=== PATIENT | female | born 1975 | race Caucasian/White ===

== ENCOUNTER 2017-07-20 12:38 | Inpatient (IN) ==
[2017-07-20 13:29] LABS: Basophils # 0.1 K/mcL (0.0-0.2); Basophils % 0.8 %; Eosinophils # 0.1 K/mcL (0.0-0.6); Eosinophils % 0.9 %; Hematocrit 38.6 % (35.3-44.9); Hemoglobin 12.9 g/dL (11.5-15.4); Immature Granulocytes % 0.5 % (0-4); Lymphocytes # 2.2 K/mcL (0.6-4.6); Lymphocytes % 32.9 %; Mean Corpuscular HGB Conc 33.4 g/dL (31.6-35.5); Mean Corpuscular Hemoglobin 29.6 pg (28.0-33.3); Mean Corpuscular Volume 88.5 fL (83.0-100.0); Mean Platelet Volume 10.4 fL (9.4-12.4); Monocytes # 0.5 K/mcL (0.0-1.3); Monocytes % 7.2 %; Neutrophils # 3.8 K/mcL (1.6-8.9); Platelet Count 284 K/mcL (140-400); Red Blood Count 4.36 M/mcL (3.82-4.97); Red Cell Distribution Width 12.9 % (11.5-14.5); Segmented Neutrophils % 57.7 %
[2017-07-20 13:49] LABS: Bilirubin,Urine Negative (Negative); Blood,Urine Negative (Negative); Clarity,Urine Clear (Clear); Color,Urine Yellow (Yellow); Glucose,Urine (UA) Normal (Normal); Ketones,Urine Negative (Negative); Leukocyte Esterase,Urine Negative (Negative); Nitrite,Urine Negative (Negative); Protein,Urine Negative (Neg-Trace); Specific Gravity,Urine 1.007 (1.010-1.025); Urobilinogen,Urine Normal (Normal)
[2017-07-20 13:51] LABS: Acetaminophen < 1.0 mcg/mL (10-30); BUN/Creatinine Ratio 10 (6-26); Blood Urea Nitrogen 9 mg/dL (6-20); Calcium 8.8 mg/dL (8.6-10.3); Carbon Dioxide 24 mEq/L (23-29); Chloride 103 mEq/L (98-107); Ethanol < 10 mg/dL (0-10); Glucose 83 mg/dL (70-105); Osmolality,Calculated 276 (280-300); Potassium 3.5 mEq/L (3.5-5.1); Salicylate < 5.0 mg/dL (15.0-30.0); Sodium 134 mEq/L (136-145); eGFR For African Americans > 60 (> 60); eGFR For Non-African Americans > 60 (> 60)
[2017-07-20 13:52] LABS: Albumin 3.7 g/dL (3.5-5.7); Albumin/Globulin Ratio 1.3 (1.1-2.2); Bilirubin,Direct 0.1 mg/dL (0.0-0.2); Bilirubin,Indirect 0.2 mg/dL (0.0-1.2); Bilirubin,Total 0.3 mg/dL (0.3-1.0); Globulin 2.9 g/dL (2.4-3.5); Total Protein 6.6 g/dL (6.4-8.9)
--- NOTE | 2017-07-20 13:55 | Emergency Department Note ---
Disposition Clinical Impression: Suicidal ideation, Cervical lymphadenopathy Depression Qualifiers: Depression Type: major depressive disorder Major depression recurrence: recurrent Active/Remission status: currently active Major depression episode severity: severe Psychotic features: with psychotic features Qualified Code(s): F33.3 - Major depressive disorder, recurrent, severe with psychotic symptoms Disposition: Admitted As Inpatient Condition: Fair Time of Disposition: 17:19 General Adult HPI - General Chief complaint: ED Psychiatric Symptoms Stated complaint: multiple complaints Time Seen by Provider: 07/20/17 12:46 Source: patient Limitations: no limitations Nursing Notes Reviewed: Yes Vital Signs Reviewed: Yes - History of Present Illness HPI Narrative: Mrs. Fisher is a 41-year-old woman with a history of anxiety and depression who presents to the ED with complaint of a mass developing in her anterior neck as well as a rash on her lower legs. The patient says that yesterday when she woke up she noticed that there is a mass in her anterior neck which was larger than general and was making a challenging to swallow and breathe easily. Masses not painful, however she has been touching it a lot because of nerves related to it and she says that that has caused some soreness. This has never happened to her before and she is being ill. She does not have any history of thyroid problems. In addition to this, she says that she has had a rash over her lower extremities that began earlier today. It is very itchy and it is red and blotchy. She does not remember using any new products on her skin, and she has not eaten anything strange. She has not taken anything for this. The patient does say that she has had a history of a headache with eye pain bilaterally for several months which has not been fully diagnosed. Additionally , this patient says that she has been severely depressed. She does not necessarily have suicidal ideations, however she expresses sentiments that she may be better off if she would never wake up again. She is expressed ideas such as driving off the road or developing cancer. She denies any plan to harm herself or others, however she does wish that she would not wake. Additionally she apparently mentioned to the nurse that she was having some auditory hallucinations and noticed that she could hear her name being called. She has not experienced this in the past. She denies any drug use or alcohol use. Pain Scale: 0 - Related Data Home Medications Medication Instructions Recorded Confirmed Acyclovir [Zovirax] 800 mg PO DAILY PRN 07/20/17 07/20/17 Albuterol Sulfate [Albuterol 2 puff IH Q4H PRN 07/20/17 07/20/17 Inhaler] FLUoxetine HCl [Prozac] 80 mg PO DAILY 07/20/17 07/20/17 Montelukast [Singulair] 10 mg PO DAILY 07/20/17 07/20/17 Omeprazole [PriLOSEC] 40 mg PO DAILY 07/20/17 07/20/17 hydrOXYzine HCl [Hydroxyzine HCl] 25 mg PO TID PRN 07/20/17 07/20/17 Allergies Allergy/AdvReac Type Severity Reaction Status Date / Time Penicillins Allergy See Verified 07/20/17 17:18 Comments Constitutional: Denies: fever, chills, weakness, night sweats Eyes: Reports: eye pain. Denies: vision change ENT ED: Reports: congestion, dysphagia Cardiovascular: Denies: chest pain, palpitations, dyspnea on exertion Respiratory: Reports: cough. Denies: dyspnea, wheezes Gastrointestinal: Denies: abdominal pain, nausea, vomiting Genitourinary: Denies: urgency, dysuria Musculoskeletal: Denies: back pain, neck pain Integumentary: Reports: rash (Lower extremity) Neurological: Reports: headache, vertigo (Intermittently). Denies: numbness, paresthesias Psychiatric: Reports: anxiety, depression, suicidal thoughts, auditory hallucinations Past Medical History - Past Medical History Medical history: Reports: no medical history Psychiatric history: Reports: anxiety, depression - Social History Smoking Status: Never smoker Smokeless Tobacco Status: No Alcohol use: Reports: none Drug use: Reports: none Physical Exam Gen.: Vitals noted. No acute distress. AAOx3 HEENT: PERRL/EOMI, oropharynx clear, Normocephalic, atraumatic Neck: Supple. Mass noted bilaterally on anterior neck consistent with lymphadenopathy Cardiac: RRR, no murmur, +S1/S2 Pulmonary: CTA bilaterally, no wheezes, rales or rhonchi, equal chest expansion Abdomen: soft, nontender, BS noted, no guarding Back: Nontender throughout. Extremities: no BLE edema, nontender calf, no cyanosis or clubbing Skin: urticarial rash noted on lower extremities b/l Neuro: A&Ox3, moves all extremities, no focal deficits Psych: Depressed mood, teary-eyed upon questioning, admits to suicidal ideation , auditory hallucinations - General Limitations: no limitations General appearance: alert, in no apparent distress Course Vital Signs Temperature 97.7 F 07/20/17 12:39 Pulse Rate 70 07/20/17 12:39 Respiratory Rate 16 07/20/17 12:39 Blood Pressure 137/91 07/20/17 12:39 O2 Sat by Pulse Oximetry 98 07/20/17 12:39 Temperature 97.7 F 07/20/17 12:39 Pulse Rate 70 07/20/17 12:39 Respiratory Rate 16 07/20/17 12:39 Blood Pressure 137/91 07/20/17 12:39 O2 Sat by Pulse Oximetry 98 07/20/17 12:39 Oxygen Delivery Oxygen Delivery Room Air Medical Decision Making - MDM Narrative Medical decision making narrative: I reviewed this patient's labs and imaging. The patient does primarily concerned about this mass that she feels in her anterior neck along with a rash in the lower extremities. On exam, she does have a palpable masslike process in the anterior neck just below the mandible. This is likely consistent with cervical lymphadenopathy, however the patient is highly concerned about this and the fact that it could affect her thyroid so I did order a CT of the soft tissue of the neck which was negative, but did demonstrate nonspecific lucent lesions upon multiple vertebra that was recommended for bone scan follow-up. Labs did not demonstrate any abnormality consistent with a thyroid problem. Additionally she will appear to have any infectious process. I do believe that the rash in the lower extremities is urticarial, and not infectious in nature. Given that the patient does have a complicated Psychiatric history and has given indication that she has suicidal ideations or abnormal preoccupation with , so I had titrated evaluate the patient who is going to accept her as an inpatient. Because the patient has a significant risk to herself, I did opt to [place] slip this patient. The patient has been medically cleared and will be transferred to . - Medical Records Medical records reviewed: Yes I reviewed the patient's medical records. - Lab Data Lab results reviewed: Yes I reviewed the patient's lab results. Result diagrams: 07/20/17 13:19 07/20/17 13:19 Lab Results 07/20/17 07/20/17 07/20/17 Range/Units 13:19 13:19 13:19 WBC 6.5 (4.3-11.1) K/mcL RBC 4.36 (3.82-4.97) M/mcL Hgb 12.9 (11.5-15.4) g/dL Hct 38.6 (35.3-44.9) % MCV 88.5 (83.0-100.0) fL MCH 29.6 (28.0-33.3) pg MCHC 33.4 (31.6-35.5) g/dL RDW 12.9 (11.5-14.5) % Plt Count 284 (140-400) K/mcL MPV 10.4 (9.4-12.4) fL Immature Gran % 0.5 (0-4) % Seg Neutrophils % 57.7 % Lymphocytes % 32.9 % Monocytes % 7.2 % Eosinophils % 0.9 % Basophils % 0.8 % Neutrophils # 3.8 (1.6-8.9) K/mcL Lymphocytes # 2.2 (0.6-4.6) K/mcL Monocytes # 0.5 (0.0-1.3) K/mcL Eosinophils # 0.1 (0.0-0.6) K/mcL Basophils # 0.1 (0.0-0.2) K/mcL Sodium 134 L (136-145) mEq/L Potassium 3.5 (3.5-5.1) mEq/L Chloride 103 (98-107) mEq/L Carbon Dioxide 24 (23-29) mEq/L BUN 9 (6-20) mg/dL Creatinine 0.91 (0.60-1.20) mg/dL Est GFR ( Amer) > 60 (> 60) Est GFR (Non-Af Amer) > 60 (> 60) BUN/Creatinine Ratio 10 (6-26) Glucose 83 (70-105) mg/dL Calculated Osmolality 276 L (280-300) Calcium 8.8 (8.6-10.3) mg/dL Total Bilirubin 0.3 (0.3-1.0) mg/dL Direct Bilirubin 0.1 (0.0-0.2) mg/dL Indirect Bilirubin 0.2 (0.0-1.2) mg/dL AST 11 L (13-39) Units/L ALT 7 (7-52) Units/L Alkaline Phosphatase 96 (34-104) Units/L Serum Total Protein 6.6 (6.4-8.9) g/dL Albumin 3.7 (3.5-5.7) g/dL Globulin 2.9 (2.4-3.5) g/dL Albumin/Globulin Ratio 1.3 (1.1-2.2) TSH 2.246 (0.340-5.600) mcIU/mL Urine Color (Yellow) Urine Clarity (Clear) Urine pH (5.0-8.0) pH Units Ur Specific [place] (1.010-1.025) Urine Protein (Neg-Trace) mg/dL Urine Glucose (UA) (Normal) mg/dL Urine Ketones (Negative) mg/dL Urine Blood (Negative) Urine Nitrite (Negative) Urine Bilirubin (Negative) Urine Urobilinogen (Normal) mg/dL Ur Leukocyte Esterase (Negative) Urine Test (Negative) Salicylates < 5.0 L (15.0-30.0) mg/dL Urine Opiates Screen (Abkvgz=057) ng/mL Acetaminophen < 1.0 L (10-30) mcg/mL Ur Barbiturates Screen (Fhcmrl=270) ng/mL Ur Phencyclidine Scrn (Cutoff=25) ng/mL Ur Amphetamines Screen (Xbtdjm=8546) ng/mL U Benzodiazepines Scrn (Ugmvni=724) ng/mL Urine Cocaine Screen (Cutoff= 300) ng/mL U Marijuana (THC) Screen (Cutoff = 50) ng/mL Ethyl Alcohol < 10 (0-10) mg/dL 07/20/17 07/20/17 07/20/17 Range/Units 13:37 13:37 13:37 WBC (4.3-11.1) K/mcL RBC (3.82-4.97) M/mcL Hgb (11.5-15.4) g/dL Hct (35.3-44.9) % MCV (83.0-100.0) fL MCH (28.0-33.3) pg MCHC (31.6-35.5) g/dL RDW (11.5-14.5) % Plt Count (140-400) K/mcL MPV (9.4-12.4) fL Immature Gran % (0-4) % Seg Neutrophils % % Lymphocytes % % Monocytes % % Eosinophils % % Basophils % % Neutrophils # (1.6-8.9) K/mcL Lymphocytes # (0.6-4.6) K/mcL Monocytes # (0.0-1.3) K/mcL Eosinophils # (0.0-0.6) K/mcL Basophils # (0.0-0.2) K/mcL Sodium (136-145) mEq/L Potassium (3.5-5.1) mEq/L Chloride (98-107) mEq/L Carbon Dioxide (23-29) mEq/L BUN (6-20) mg/dL Creatinine (0.60-1.20) mg/dL Est GFR ( Amer) (> 60) Est GFR (Non-Af Amer) (> 60) BUN/Creatinine Ratio (6-26) Glucose (70-105) mg/dL Calculated Osmolality (280-300) Calcium (8.6-10.3) mg/dL Total Bilirubin (0.3-1.0) mg/dL Direct Bilirubin (0.0-0.2) mg/dL Indirect Bilirubin (0.0-1.2) mg/dL AST (13-39) Units/L ALT (7-52) Units/L Alkaline Phosphatase (34-104) Units/L Serum Total Protein (6.4-8.9) g/dL Albumin (3.5-5.7) g/dL Globulin (2.4-3.5) g/dL Albumin/Globulin Ratio (1.1-2.2) TSH (0.340-5.600) mcIU/mL Urine Color Yellow (Yellow) Urine Clarity Clear (Clear) Urine pH 6.0 (5.0-8.0) pH Units Ur Specific [place] 1.007 L (1.010-1.025) Urine Protein Negative (Neg-Trace) mg/dL Urine Glucose (UA) Normal (Normal) mg/dL Urine Ketones Negative (Negative) mg/dL Urine Blood Negative (Negative) Urine Nitrite Negative (Negative) Urine Bilirubin Negative (Negative) Urine Urobilinogen Normal (Normal) mg/dL Ur Leukocyte Esterase Negative (Negative) Urine Test Negative (Negative) Salicylates (15.0-30.0) mg/dL Urine Opiates Screen Negative (Hzvivr=128) ng/mL Acetaminophen (10-30) mcg/mL Ur Barbiturates Screen Negative (Qxibiz=578) ng/mL Ur Phencyclidine Scrn Negative (Cutoff=25) ng/mL Ur Amphetamines Screen Negative (Bpvhkz=1187) ng/mL U Benzodiazepines Scrn Negative (Jtpgiu=630) ng/mL Urine Cocaine Screen Negative (Cutoff= 300) ng/mL U Marijuana (THC) Screen Negative (Cutoff = 50) ng/mL Ethyl Alcohol (0-10) mg/dL - Radiology Data Radiology results reviewed: Yes I reviewed the patient's radiology results. Attestation Statement - Attestation Attestation: Patient was seen with resident physician. I reviewed the history, physical, assessment and plan, and agree with the findings. I also personally evaluated this patient and had [id number] time with this patient. 41-year-old female presents to the emergency department with chief complaint of neck mass and some depression. Patient also states that she developed a rash earlier today. The legs bilaterally lower extremities. She denies fevers chills chest pain or shortness of breath. She gave several different psych histories 2 nurses in providers. It is unclear what the level of her depression is based on these discordant reports. On exam vital signs are stable. ENT is unremarkable except for some lymphadenopathy in the anterior neck. Heart and lungs normal. Abdomen is soft and nontender. Extremities are unremarkable. Neurologically intact. Psych patient appears somewhat depressed and anxious. ED course we will get a CT scan of her neck because the patient's anxious about a thyroid problem. Basic lab testing was largely unremarkable. Once her workup is complete we will have one A, evaluate the patient for the psychiatric issues. CT of the neck just revealed anterior lymphadenopathy there was no mass noted. Labs are unremarkable. When he did come and evaluate the patient had a lot of concerns about the patient's ability to care for self once home with some psychiatric issues. She was placed on an involuntary psychiatric hold. She will be admitted to one A for further evaluation treatment. I agree with the resident physician assessment and plan.
[2017-07-20 13:59] LABS: Thyroid Stimulating Hormone 2.246 mcIU/mL (0.340-5.600)
[2017-07-20 13:59] LABS: Amphetamine Screen,Urine Negative ng/mL (Cutoff=1000); Barbiturate Screen,Urine Negative ng/mL (Cutoff=200); Benzodiazepines Screen,Urine Negative ng/mL (Cutoff=200); Cannabinoid Screen,Urine Negative ng/mL (Cutoff = 50); Cocaine Screen,Urine Negative ng/mL (Cutoff= 300); Opiate Screen,Urine Negative ng/mL (Cutoff=300); Phencyclidine Screen,Urine Negative ng/mL (Cutoff=25)
[2017-07-20] MEDS ORDERED: Mag Hydrox/Al Hydrox/Simeth 30 ML UDC PO PRN (18:40)
[2017-07-20] MEDS ORDERED: *HR* LORazepam 2 MG/ML VIAL IM PRN (18:40)
[2017-07-20] MEDS ORDERED: MOM Conc 10 ML UD.LIQ PO PRN (18:40)
[2017-07-20] MEDS ORDERED: Haloperidol Lactate 5 MG/ML VIAL IM PRN (18:40)
[2017-07-20] MEDS ORDERED: traZODone 50 MG TABLET PO PRN (18:40)
[2017-07-20] MEDS ORDERED: *HR* LORazepam 1 MG TABLET PO PRN (18:40)
[2017-07-20] MEDS: hydrOXYzine pamoate 25 MG CAPSULE PO PRN (21:27)
[2017-07-21] MEDS: FLUoxetine 20 MG CAPSULE PO SCH (09:05)
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
[2017-07-21] MEDS: hydrOXYzine pamoate 25 MG CAPSULE PO PRN (20:55)
[2017-07-22] MEDS: FLUoxetine 20 MG CAPSULE PO SCH (09:38)
--- NOTE | 2017-07-22 16:10 | Psychiatry Progress Note ---
Date of Encounter: 07/22/17 Time of Encounter: 15:50 Subjective Interval history: Patient told me that she was adjusting to the unit and trying to get involved. She told me that she sat in on a group today and it felt nice to hear other people talk. She did not feel so all alone. She discussed extensively her trauma history and the work that she did with her therapist in [place]. She realizes that she probably benefited from some of it, but has not continued to keep up on it. She talked about her PTSD; her memory and recall flashbacks of trauma, the fact that she still has nightmares periodically and her anxiety and hypervigilance. She notices this in many situations now that she pleases a result of things that happened to her in the past. We talked about potential medication changes in regards to her SSRI. She had Zoloft 15 years ago and was stopped on it but she is not sure why she is currently at Prozac 80 mg PO Q day. It might help some with depression, but what she feels actually drives her depression is her anxiety. She talks about having been on other medications where she "felt drugged in the past". And she does not want to do that. She states that she slept last night. We talked quite a bit about her anxiety and the use of Vistaril to help her sleep but potentially using it PRN for her anxiety and agitation. Thought being, if she got a better quality sleep and was less anxious, she should physically feel less drained and her depression would not feel so extreme. She thought this was a good idea and is going to give it a try. She denies any active suicidal ideation. She denies any auditory or visual hallucinations. She still does not feel safe leaving the unit. Objective: Exam Patient orientation: Yes Person, Yes Time, Yes Place Level of alertness: Alert Patient appearance: Appropriate Behavior: anxious Psychomotor activity: Normal Eye contact: Maintains Eye Contact Mood description: Anxious Affect description: congruent with mood Speech pattern: Normal rate, Normal rhythm, Normal tone Speech volume: Normal Thought process: Intact, Linear, Goal Oriented Thought content: Yes Suicidal ideation (passive) Judgment: Fair Insight: Partial Results - Vital Signs Vital Signs: Temp Pulse Resp BP Pulse Ox 98.2 F 69 16 118/77 98 07/21/17 21:00 07/21/17 21:00 07/21/17 21:00 07/21/17 21:00 07/20/17 12:39 Assessment and Plan (1) Depression Current visit: Yes Status: Acute Plan: Continue hospitalization, Close observation, Suicide Precautions per unit protocol, Encourage participation in unit milieu, Group Therapy, Monitor sleep Risks, benefits, side effects, alternatives discussed w/pt: Yes (Continue Prozac 80 mg po q AM) Patient agreeable to treatment: Yes (Strongly encouraged her to start doing "talk" therapy.) Qualifiers: Depression Type: major depressive disorder Major depression recurrence: recurrent Active/Remission status: currently active Major depression episode severity: severe Psychotic features: without psychotic features Qualified Code(s): F33.2 - Major depressive disorder, recurrent severe without psychotic features (2) Post traumatic stress disorder (PTSD) Current visit: Yes Status: Acute Plan: Continue hospitalization, Close observation, Suicide Precautions per unit protocol, Encourage participation in unit milieu, Group Therapy, Monitor sleep Risks, benefits, side effects, alternatives discussed w/pt: Yes Patient agreeable to treatment: Yes (Vistaril for sleep and anxiety) Consult Discharge Plan - Plan Referrals: Jerry Riley [Other] - 07/31/17 3:45 pm (The above appointment is with Dr. Riley for medication management services.) [facility] [Outside] - 08/18/17 10:00 am (The above appointment is with Mikayla Montalvo for mental health counseling services. Please arrive 10 minutes early to complete the check-in process. Please bring your insurance card (or [employer] award letter) and photo ID. If you are unable to keep this appointment, 24 hour business notice of cancellation is expected. If you miss your new patient appointment without providing appropriate notice, you cannot be re-scheduled. The above appointment(s) reflects first availability. You may contact the office regularly to check for cancellations that may allow you to be seen sooner. The [facility] is the 1st building behind [facility] in [place], [place]. Please do not use GPS or mapping apps to locate the office, as they will take you to the wrong location. )
[2017-07-22] MEDS: Ibuprofen 400 MG TABLET PO PRN (18:08)
[2017-07-22] MEDS: hydrOXYzine pamoate 25 MG CAPSULE PO SCH (20:37)
[2017-07-23] MEDS: FLUoxetine 20 MG CAPSULE PO SCH (08:50)
[2017-07-23] MEDS: Ibuprofen 400 MG TABLET PO PRN (13:27)
--- NOTE | 2017-07-23 16:30 | Psychiatry Progress Note ---
Date of Encounter: 07/23/17 Time of Encounter: 16:20 Subjective Interval history: Patient tells me "I am irritable today". She states that the unit was hard to sleep on last night secondary to some situations with other patients on the unit. She is focused today very much on decompensating once she leaves this unit. She is afraid that she will not be able to change issues in her life to better take care of herself and put up boundaries. She denies being actively suicidal but today states "I just do not want to be alive". She is trying to incorporate things into a treatment plan when she is discharged to continue to move forward and not let the issues of her family affect her anxiety and depression. She believes if she goes back to journaling, that will help. She denies any side effects the medications. She finds the changes helpful. She denies any auditory or visual hallucinations. She thinks, in part she just needs respite from life to get things figured out and should be able to feel and function better. Objective: Exam Patient orientation: Yes Person, Yes Time, Yes Circumstance Level of alertness: Alert Patient appearance: Appropriate, Well Groomed Behavior: anxious (less) Psychomotor activity: Normal Eye contact: Maintains Eye Contact Mood description: Depressed, Anxious Affect description: congruent with mood Speech pattern: Normal rate, Normal rhythm Speech volume: Normal Thought process: Intact, Logical, Linear, Goal Oriented Thought content: Yes Suicidal ideation (passive) Judgment: Fair Insight: Partial Results - Vital Signs Vital Signs: Temp Pulse Resp BP Pulse Ox 97.5 F L 75 16 111/67 98 07/23/17 10:33 07/23/17 10:33 07/23/17 10:33 07/22/17 20:01 07/20/17 12:39 Assessment and Plan (1) Depression Current visit: Yes Status: Acute Plan: Continue hospitalization, Close observation, Suicide Precautions per unit protocol, Group Therapy, Monitor sleep Risks, benefits, side effects, alternatives discussed w/pt: Yes (Continue Prozac 80 mg po q AM) Patient agreeable to treatment: Yes (Strongly encouraged her to start doing "talk" therapy.) Qualifiers: Depression Type: major depressive disorder Major depression recurrence: recurrent Active/Remission status: currently active Major depression episode severity: severe Psychotic features: without psychotic features Qualified Code(s): F33.2 - Major depressive disorder, recurrent severe without psychotic features (2) Post traumatic stress disorder (PTSD) Current visit: Yes Status: Acute Plan: Continue hospitalization, Close observation, Suicide Precautions per unit protocol, Group Therapy, Monitor sleep Risks, benefits, side effects, alternatives discussed w/pt: Yes Patient agreeable to treatment: Yes ( Vistaril for sleep and anxiety) Consult Discharge Plan - Plan Referrals: Jerry Riley [Other] - 07/31/17 3:45 pm (The above appointment is with Dr. Riley for medication management services.) [facility] [Outside] - 08/18/17 10:00 am (The above appointment is with Mikayla Montalvo for mental health counseling services. Please arrive 10 minutes early to complete the check-in process. Please bring your insurance card (or [facility]) and photo ID. If you are unable to keep this appointment, 24 hour business notice of cancellation is expected. If you miss your new patient appointment without providing appropriate notice, you cannot be re-scheduled. The above appointment(s) reflects first availability. You may contact the office regularly to check for cancellations that may allow you to be seen sooner. The [facility] is the 1st building behind [facility] in [place], [place]. Please do not use GPS or mapping apps to locate the office, as they will take you to the wrong location. )
[2017-07-23] MEDS: hydrOXYzine pamoate 25 MG CAPSULE PO PRN (21:06)
[2017-07-23] MEDS: hydrOXYzine pamoate 25 MG CAPSULE PO SCH (21:06)
[2017-07-24] MEDS: FLUoxetine 20 MG CAPSULE PO SCH (09:07)
[2017-07-24 09:45] VITALS: BP 104/68
--- NOTE | 2017-07-24 14:57 | Discharge Summary ---
Date of Encounter: 07/24/17 Time of Encounter: 14:20 Diagnosis - Discharge Diagnosis (1) Depression Status: Acute Qualifiers: Depression Type: major depressive disorder Major depression recurrence: recurrent Active/Remission status: currently active Major depression episode severity: severe Psychotic features: without psychotic features Qualified Code(s): F33.2 - Major depressive disorder, recurrent severe without psychotic features (2) Post traumatic stress disorder (PTSD) Status: Acute Medications - Discharge Medications Prescriptions: hydrOXYzine pamoate [HydrOXYzine Pamoate] 25 mg PO TID PRN 30 Days #60 capsule PRN Reason: Anxiety hydrOXYzine pamoate [HydrOXYzine Pamoate] 50 mg PO HS #30 capsule Acyclovir [Zovirax] 800 mg PO DAILY PRN 07/20/17 [History] Albuterol Sulfate [Albuterol Inhaler] 2 puff IH Q4H PRN 07/20/17 [History] FLUoxetine HCl [Prozac] 80 mg PO DAILY 07/20/17 [History] Montelukast [Singulair] 10 mg PO DAILY 07/20/17 [History] Omeprazole [PriLOSEC] 40 mg PO DAILY 07/20/17 [History] hydrOXYzine pamoate [HydrOXYzine Pamoate] 25 mg PO TID PRN 30 Days #60 capsule 07/24/17 [Rx] hydrOXYzine pamoate [HydrOXYzine Pamoate] 50 mg PO HS #30 capsule 07/24/17 [Rx] 3 Allergy/AdvReac Type Severity Reaction Status Date / Time Penicillins Allergy See Verified 07/20/17 17:18 Comments Provider Date of admission: 07/20/17 17:14 Primary care physician: PCP NONE Assessment and Plan - Patient/Caregiver Discharge Instructions Activity: resume usual activities as tolerated Diet: regular diet - Follow up Plan Follow up with: Jerry Riley [Other] - 07/31/17 3:45 pm (The above appointment is with Dr. Riley for medication management services.) [facility] [Outside] - 08/18/17 10:00 am (The above appointment is with Mikayla Montalvo for mental health counseling services. Please arrive 10 minutes early to complete the check-in process. Please bring your insurance card (or [employer] award letter) and photo ID. If you are unable to keep this appointment, 24 hour business notice of cancellation is expected. If you miss your new patient appointment without providing appropriate notice, you cannot be re-scheduled. The above appointment(s) reflects first availability. You may contact the office regularly to check for cancellations that may allow you to be seen sooner. The [facility] is the [facility]st building [facility] in [place], [place]. Please do not use GPS or mapping apps to locate the office, as they will take you to the wrong location. ) Functional capacity at discharge: independent ambulation Overall status at discharge: Stable Disposition: Home, Self-Care Hospital Course Hospital course: Ms. Fisher is a 41 year old female who tells me today "I am doing better today". She tells me that the AA meeting they had on the unit last night was very insightful and she heard more about Al-Anon. This is been one of the issues that she struggles with her life; dealing with her alcoholic sister. She states that learning about Al-Anon is a relief and she is going to start attending the meetings outpatient. "I am ready to go home". She believes Al- Anon meetings as an adjunct to her own personal therapy with a therapist will help support her and learn better coping skills and boundaries with her sister. She denies any suicidal/homicidal ideation. She denies any auditory or visual hallucinations. She is not feeling is depressed and hopeless as she was. She states that she is decided that she is going to look for new job, believing that her old job contributes to her depression as well as the drive time contributes to her anxiety. She states that the Vistaril helped greatly with her anxiety and also help with her sleep. She stated that this was the 1st time she felt she was actually heard in regards to her PTSD and the correlation was made with the PTSD and depression, going together with the direct result of her inability to sleep, creating her anxiety and feeling hopeless and helpless. She denies any adverse side effects the medications. She will follow-up with her outpatient doctor when she gets home and also start seeing a therapist. She will start using the new coping skills she learned in groups while on the unit to help support her and discharge. Does patient wish to continue nicotine replacement upon disc: No (NA) - Time Spent with Patient Total time spent providing and/or coordinating discharge services: 25 min Less than 30 minutes Quality - Multiple Antipsychotics Patient discharged on 2 or more antipsychotic medications: No Procedures - Procedures Procedures: Medication Management, Crisis Stabilization, Supportive Therapy, Group Therapy, Psychoeducational Therapy Mental Status Exam - Mental Status Exam Patient orientation: Yes Person, Yes Time, Yes Place, Yes Circumstance Level of alertness: Alert Patient appearance: Appropriate, Well Groomed, Well-nourished Behavior: calm Psychomotor activity: Normal Eye contact: Maintains Eye Contact Mood description: Euthymic/stable Patient description of mood: Better Affect description: congruent with mood Speech pattern: Normal rate, Normal rhythm, Normal tone, Appropriate Speech Volume: Normal Thought process: Intact, Logical, Linear, Goal Oriented Thought Content: Yes Intact Judgment: Good Insight: Full
== END 2017-07-24 15:50 | disposition home or self-care (01) | DRG 885 ==
LOC: EMEROO 12:38 → 1ANU 17:14
PROVIDERS: ADMIT Psychiatry & Neurology Psychiatry; ATTEND Psychiatry & Neurology Psychiatry